=== PATIENT | male | born 1955 | race Caucasian/White ===

== ENCOUNTER 2017-09-22 16:22 | Emergency (ER) | payer BC ==
[~2017-09-22] VITALS: Ht 190.5 cm; Wt 102.3 kg
[~2017-09-22 16:22] MED LIST: Coumadin,Jantoven PO; Feosol PO; Senokot S,Pericolace PO; Vicodin,Norco 5/325 PO
[2017-09-22] MEDS ORDERED: VIBRAMYCIN100 MG PO (18:11)
[2017-09-22 19:10] VITALS: BP 157/73
[2017-09-22 19:11] LABS: BASOPHIL (%) 0.7 % (0-1); EOSINOPHIL (%) 2.7 % (0-5); EOSINOPHIL COUNT 0.2 K/uL (0-0.3); HEMATOCRIT 38.9 % (38.0-50.0); HEMOGLOBIN 13.1 G/DL (12.5-16.6); IMMATURE GRANULOCYTE (%) 0.5 % (0.0-0.7); LYMPHOCYTE (%) 30.1 % (15-42); LYMPHOCYTE COUNT 1.7 K/uL (1.0-2.8); MCHC 33.7 G/DL (30.0-36.0); MCV 89.2 FL (86-99); MONOCYTE (%) 8.8 % (3-12); MONOCYTE COUNT 0.5 K/uL (0-0.8); NEUTROPHIL (%) 57.2 % (45-76); NEUTROPHIL COUNT 3.2 K/uL (1.8-6.4); PLATELET COUNT 319 K/uL (156-360); RBC DIS.WIDTH-CV 12.2 % (11.8-14.6); RBC DIS.WIDTH-SD 39.6 % (39-53); RED BLOOD COUNT 4.36 M/uL (4.00-5.50); WHITE BLOOD COUNT 5.5 K/uL (4.1-10.2)
[2017-09-22 19:21] LABS: CHLORIDE 103 mEq/L (99-109); POTASSIUM 4.5 mEq/L (3.7-5.4); SODIUM 137 mEq/L (136-147)
[2017-09-22 19:23] LABS: GLUCOSE 100 mg/dL (70-99)
[2017-09-22 19:27] LABS: CREATININE 1.4 mg/dL (0.6-1.3); GFR ESTIMATE (CALCULATED) 55 mL/min/ (58.99-99999)
[2017-09-22 19:28] LABS: UREA NITROGEN (BUN) 21 mg/dL (9-23)
[2017-09-22 19:38] LABS: ERTH.SED.RATE 49 MM/HR (0-20)
[2017-09-22 19:55] LABS: C-REACTIVE PROTEIN 7.2 MG/L (0-10)
== END 2017-09-22 19:13 | disposition home or self-care (01) ==
LOC: EME 16:22
PROVIDERS: Physician Assistant
DX: L03.031 Cellulitis of right toe (principal)
CPT/HCPCS: 73660; 80048; 85025; 85652; 86140; 99281; 99284